=== PATIENT | male | born 1965 | race Caucasian/White ===

== ENCOUNTER 2017-09-04 21:43 | Emergency (ER) | payer BC ==
--- NOTE | 2017-09-04 21:48 | UC ---
Eye Complaint HPI - HPI Summary HPI Summary: 51 yo male presents with right eye redness, mild swelling, watering, and mild tenderness to touch that began yesterday and seems worse today. He wears glasses but never contacts. He also tells me that he was [place] ago and wonders if he got some "bacteria" in his eye. Denies vision changes , injury, rash, or FB. - History of Current Complaint Stated Complaint: EYE IRRITATION Time Seen by Provider: 09/04/17 21:47 Hx Obtained From: Patient Onset/Duration: Sudden Onset Severity Currently: None - Allergies/Home Medications Allergies/Adverse Reactions: Allergies Allergy/AdvReac Type Severity Reaction Status Date / Time No Known Allergies Allergy Verified 09/04/17 21:50 PMH/Surg Hx/FS Hx/Imm Hx - Additional Past Medical History Additional PMH: None Previously Healthy: Yes - Family History Known Family History: Positive: None - Social History Occupation: Employed Full-time Lives: With Family Alcohol Use: Occasionally Substance Use Type: None Smoking Status (MU): Never Smoked Tobacco Review of Systems Constitutional: Negative Skin: Negative Eyes: Drainage, Eye Redness ENT: Negative Respiratory: Negative Cardiovascular: Negative Gastrointestinal: Negative Neurological: Negative Psychological: Negative All Other Systems Reviewed And Are Negative: Yes Physical Exam - Summary Physical Exam Summary: GENERAL: NAD. WDWN. No pain distress. SKIN: No rashes, sores, lesions, or open wounds. HEENT: Head: AT/NC Eyes: PERRLA. EOMI. RIGHT EYE: Mild scleral injection. Conjunctiva clear with mild inflammation and clear discharge. LEFT EYE: Conjunctiva clear without inflammation or discharge. Ears: Hearing grossly normal. TMs intact, no bulging, erythema, or edema. Nose: NTTP maxillary and frontal sinus. NECK: Supple. Nontender. No lymphadenopathy. CHEST: No accessory muscle use. Breathing comfortably and in no distress. CV: Pulses intact. Brisk cap refill. NEURO: Alert. CN II-XII grossly intact. PSYCH: Age appropriate behavior. Triage Information Reviewed: Yes Vital Signs: Vital Signs: Temp Pulse Resp BP Pulse Ox 97.6 F 59 16 137/89 99 09/04/17 21:46 09/04/17 21:46 09/04/17 21:46 09/04/17 21:46 09/04/17 21:46 Eye Complaint Course/Dx - Course Course Of Treatment: Right eye conjunctivitis - polytrim - Differential Dx/Diagnosis Provider Diagnoses: Right eye conjunctivitis Discharge - Sign-Out/Discharge Documenting (check all that apply): Discharge/Admit/Transfer - Discharge Plan Condition: Stable Disposition: HOME Patient Education Materials: Conjunctivitis (ED) Referrals: Garry Mann MD [Primary Care Provider] - Additional Instructions: If you develop a fever, shortness of breath, chest pain, new or worsening symptoms - please call your PCP or go to the ED. Your blood pressure was high at todays visit. Please see your primary provider within 4 weeks for recheck and re-evaluation. - Billing Disposition and Condition Condition: STABLE Disposition: Home
[2017-09-04 21:50] VITALS: BP 137/89
[2017-09-04] MEDS ORDERED: Polymyx/Trimethoprim OPTH* 10 ML BTL RIGHT EYE ONE (21:56)
== END 2017-09-04 22:05 | disposition home or self-care (01) ==
LOC: UCEAST 21:43
DX: H10.9 Unspecified conjunctivitis (principal)
CPT/HCPCS: 99212; G0463

== ENCOUNTER 2018-04-02 17:51 | Emergency (ER) | payer BC ==
[2018-04-02 18:01] VITALS: BP 144/98
--- NOTE | 2018-04-02 18:32 | UC ---
Throat Pain/Nasal James HPI - HPI Summary HPI Summary: 52 y/o male presents to the urgent care c/o sinus congestion w/ green nasal discharge, sinus pain and moderated PND for the past 10 days. Pt reports Hx of sinusitis in the past. He is leaving tomorrow in a long trip and is requesting antibiotics for his sinusitis. Pain is pressure like on the left side of his face, 6/10 and some burning sensation in his throat due to PND. Pt has been taking OTC medication w/o any improvement. Pt denies fever, ear pain, dizziness , SOB, chest pain,abdominal pain, N/V/D. - History of Current Complaint Chief Complaint: UCGeneralIllness Stated Complaint: SINUS CONGESTION AND SORE THROAT Time Seen by Provider: 04/02/18 18:27 Hx Obtained From: Patient Onset/Duration: Gradual Onset, Lasting Weeks - 1.5 weeks ago, Still Present, Worse Since - 2 days Severity: Moderate Pain Intensity: 6 - sinus pain Pain Scale Used: 0-10 Numeric Cough: Sputum Appears - yellowish w/ moderate PND Associated Signs & Symptoms: Positive: Dysphagia - burning sensation, Sinus Discomfort, Nasal Discharge. Negative: Fever, Vomiting - Epiglottits Risk Factors Epiglottis Risk Factors: Negative - Allergies/Home Medications Allergies/Adverse Reactions: Allergies Allergy/AdvReac Type Severity Reaction Status Date / Time No Known Allergies Allergy Verified 04/02/18 18:01 PMH/Surg Hx/FS Hx/Imm Hx Previously Healthy: Yes - Pt denies PMHX - Surgical History Surgical History: None - Family History Known Family History: Positive: None - Pt denies FMHX - Social History Occupation: Employed Full-time Lives: With Family Alcohol Use: Weekly Alcohol Amount: 2-4 Substance Use Type: None Smoking Status (MU): Never Smoked Tobacco Review of Systems All Other Systems Reviewed And Are Negative: Yes Constitutional: Positive: Negative Skin: Positive: Negative Eyes: Positive: Negative ENT: Positive: Ear Ache - B/L ear pressure, Nasal Discharge - yellowish, Sinus Congestion, Sinus Pain/Tenderness, Other - moderate PND Respiratory: Positive: Cough - productive w/ yellowish phlegm Cardiovascular: Positive: Negative Gastrointestinal: Positive: Negative Genitourinary: Positive: Negative Motor: Positive: Negative Neurovascular: Positive: Negative Musculoskeletal: Positive: Negative Neurological: Positive: Headache Psychological: Positive: Negative Is Patient Immunocompromised?: No Physical Exam - Summary Physical Exam Summary: Vitals: reviewed General: Well developed, well-nourished obese male patient with NAD. Head and face: Normocephalic and atraumatic, Positive tenderness over the frontal and maxillary sinuses.. Eyes: PERRLA, EOMI x 2. Normal conjunctiva. No eye discharge. ENT: Ears and TM with normal limits. Nose: edematous and erythematous nasal mucosa with with yellowish discharge and erythematous mucosa. Pharynx with erythema, no exudate. +PND yellowish. Neck: Supple, no JVD, no carotid bruits and no lymphadenopathy. Lungs: clear, no rales, no rhonchi, no wheezes. CVS: RRR, S1 and S2 present no murmurs or gallops appreciated. Abdomen: soft nontender with positive bowel sounds. Extremities: no edema noted. Neuro: WNL. Skin: warm and dry Triage Information Reviewed: Yes Vital Signs: Initial Vital Signs Temp 98.0 F 04/02/18 17:57 Pulse 62 04/02/18 17:57 Resp 18 04/02/18 17:57 BP 144/98 04/02/18 17:57 Pulse Ox 100 04/02/18 17:57 Throat Pain/Nasal Course/Dx - Course Course Of Treatment: 52 y/o male presents to the urgent care c/o sinus congestion w/ green nasal discharge, sinus pain and moderated PND for the past 10 days. Pt reports Hx of sinusitis in the past. He is leaving tomorrow in a long trip and is requesting antibiotics for his sinusitis. Pain is pressure like on the left side of his face, 6/10 and some burning sensation in his throat due to PND. Pt has been taking OTC medication w/o any improvement. Pt denies fever, ear pain, dizziness, SOB, chest pain,abdominal pain, N/V/D. Hx obtained. Pt with acute bacterial sinusitis on examiantion. Pt with 1.5 weeks of symptoms getting worse. Pt Rx Augmentin PO and flonase nasal spray. Tessalon PO for cough. Discharge instructions explained to Pt. Advised to Return to the clinic or PCP if symptoms do not improve. Pt's BP is elevated today advised to decrease salt in diet, monitor BP and f/u with PCP for further management. Pt understood and agreed with plan of care. - Differential Dx/Diagnosis Differential Diagnosis/HQI/PQRI: Influenza, Laryngitis, Otitis Media, Pharyngitis, Sinusitis, Tonsillitis, URI Provider Diagnosis: Acute bacterial sinusitis, Elevated BP without diagnosis of hypertension Discharge - Sign-Out/Discharge Documenting (check all that apply): Patient Departure - d/c home All imaging exams completed and their final reports reviewed: No Studies - Discharge Plan Condition: Stable Disposition: HOME Prescriptions: Amoxicillin/Clavulanate TAB* [Augmentin TAB 875*] 875 mg PO BID #20 tab Fluticasone NASAL SPRAY 50MCG* [Flonase NASAL SPRAY 50MCG*] 2 spray BOTH NARES DAILY #1 btl Patient Education Materials: Sinusitis (ED), Low-Sodium Diet (ED) Referrals: Garry Mann MD [Primary Care Provider] - 3 Days Additional Instructions: 1- Please increase fluid intake and rest. take full course of antibiotic to avoid resistance. Please eat yogurt w/ probiotics while taking antibiotic to protect your digestive system. 2-Use Flonase as directed to help drain fluid. Also buy saline drops to clear sinuses as directed 3-Continue taking Advil q6-8hrs to alleviate headache or sinus pain 4-Return to the clinic or PCP in 3 days if symptoms do not improve for further management and treatment 5- Your BP is elevated today. please decrease salt in your diet, monitor BP and if it continues to be elevated please f/u with your PCP for further management. - Billing Disposition and Condition Condition: STABLE Disposition: Home
== END 2018-04-02 19:03 | disposition home or self-care (01) ==
LOC: UCEAST 17:51
DX: J01.80 Other acute sinusitis (principal); R03.0 Elevated blood-pressure reading, without diagnosis of hypertension
CPT/HCPCS: 99212; G0463